=== PATIENT | female | born 1965 | race Caucasian/White ===

== ENCOUNTER 2018-10-26 20:40 | Emergency (ER) | payer MEDICAID ==
--- NOTE | 2018-10-26 20:50 | ED Physician Documentation ---
History of Present Illness - Stated complaint Stated Complaint: FEVER EARLIER/PRODUCTIVE COUGH/NICHOLS - History obtained from History obtained from: Patient - History of Present Illness Timing: How many days ago (2) Improved by: nothing Worsened by: bending forward, coughing - Additonal information Additional information: c/o 2 days of sinus congestion, cough. These symptoms actually started approximately 10 days ago, but had nearly resolved until 2 days ago when they became significantly worse and became associated with fevers, Tmax 101 today. Cough had been dry but now occasionally associated with thick, discolored (green) sputum. Also has generalized headache. Review of Systems Constitutional: reports: Fever, Myalgias Ears: denies: Ear pain Nose: reports: Congestion, Sinus pressure / pain Throat: denies: Sore throat Cardiac: reports: Reviewed and negative Respiratory: reports: Cough. denies: Dyspnea, Wheezing GI: reports: Reviewed and negative Neurologic: reports: Headache PD PAST MEDICAL HISTORY - Past Medical History Past Medical History: Yes Cardiovascular: Hypertension, Pulmonary embolism Respiratory: Asthma - Present Medications Home Medications: Ambulatory Orders Medication Instructions Recorded Confirmed Apixaban [Eliquis] 5 mg PO BID 10/26/18 10/26/18 Atenolol [Tenormin] 50 mg PO BID 10/26/18 10/26/18 Azithromycin [Zithromax] 250 mg PO DAILY #4 tablet 10/26/18 Diltiazem HCl [Diltiazem ER] 180 mg PO DAILY 10/26/18 10/26/18 Hydrocodone/Acetaminophen 1 - 2 each PO Q6HR PRN #14 tablet 10/26/18 [Hydrocodone-Acetamin 5-325 mg] Lisinopril [Prinivil] 20 mg PO DAILY 10/26/18 10/26/18 - Allergies Allergies/Adverse Reactions: Allergies Allergy/AdvReac Type Severity Reaction Status Date / Time Penicillins Allergy Rash Verified 10/26/18 20:52 - Living Situation Living Arrangement: reports: At home PD ED PE NORMAL - Vitals Vital signs reviewed: Yes - General General: Alert and oriented X 3, No acute distress, Well developed/nourished - HEENT HEENT: Moist mucous membranes - Neck Neck: Supple, no meningeal sign - Cardiac Cardiac: RRR, No murmur, No gallop, No rub - Respiratory Respiratory: No respiratory distress, Clear bilaterally Results - Vitals Vitals: Vital Signs - 24 hr 10/26/18 10/26/18 20:50 21:38 Temperature 35.8 C L 36.7 C Heart Rate 105 H 99 Respiratory 20 18 Rate Blood Pressure 145/101 H 145/83 H O2 Saturation 97 96 Oxygen O2 Source Room air - Labs Labs: Laboratory Tests 10/26/18 21:10 Influenza A (Rapid) Negative Influenza B (Rapid) Negative PD MEDICAL DECISION MAKING - ED course Complexity details: reviewed results, re-evaluated patient, considered differential, d/w patient Departure - Departure Disposition: 01 Home, Self Care Clinical Impression: Sinusitis Condition: Good Instructions: ED Headache Sinus, ED Sinusitis Abx Tx Follow-Up: [facility] [Provider Group] [facility] [place] [Provider Group] Prescriptions: Hydrocodone/Acetaminophen [Hydrocodone-Acetamin 5-325 mg] 1 - 2 each PO Q6HR PRN #14 tablet PRN Reason: Pain Azithromycin [Zithromax] 250 mg PO DAILY #4 tablet Forms: Activity restrictions Discharge Date/Time: 10/26/18 21:48
[2018-10-26] MEDS ORDERED: HYDROcod/ACET 5/325 Prepack 4 PO STA (21:33)
[2018-10-26] MEDS ORDERED: AZITHROMYCIN 250 MG TABLET PO STA (21:33)
[2018-10-26 21:40] VITALS: BP 145/83
== END 2018-10-26 21:48 | disposition home or self-care (01) ==
LOC: ED 20:40
DX: J32.9 Chronic sinusitis, unspecified (principal); I10 Essential (primary) hypertension
CPT/HCPCS: 87275; 87276; 99283; A9270

== ENCOUNTER 2018-11-01 09:42 | Emergency (ER) | payer MEDICAID ==
[2018-11-01] MEDS ORDERED: IPRATROPIUM/ALBUTEROL 3 ML NEB INH STA (10:03)
[2018-11-01] MEDS ORDERED: predniSONE 20 MG TABLET PO STA (10:04)
--- NOTE | 2018-11-01 10:12 | ED Physician Documentation ---
History of Present Illness - Stated complaint Stated Complaint: DIFFICULTY BREATHING/COUGH - Chief complaint Chief Complaint: Resp - History obtained from History obtained from: Patient - History of Present Illness Timing: How many weeks ago (1) Pain level max: 2 Pain level now: 2 - Additonal information Additional information: 53 year old female with Cough, nasal congestion for the past week. Was seen here and started on azithromycin. She states that she is having more difficulty breathing. Does have a history of asthma. Is using her inhaler 3-4 times a day. Is not currently on steroids. Nothing makes it better or worse. No fevers Review of Systems Constitutional: denies: Fever Respiratory: reports: Cough, Wheezing GI: denies: Abdominal Pain, Vomiting, Diarrhea : reports: Dysuria, Frequency Skin: denies: Rash Musculoskeletal: denies: Neck pain, Back pain Neurologic: denies: Headache PD PAST MEDICAL HISTORY - Past Medical History Past Medical History: Yes Cardiovascular: Hypertension, Pulmonary embolism Respiratory: Asthma - Present Medications Home Medications: Ambulatory Orders Medication Instructions Recorded Confirmed Apixaban [Eliquis] 5 mg PO BID 10/26/18 11/01/18 Atenolol [Tenormin] 50 mg PO BID 10/26/18 11/01/18 Lisinopril [Prinivil] 20 mg PO DAILY 10/26/18 11/01/18 dilTIAZem HCl [Diltiazem ER] 180 mg PO DAILY 10/26/18 11/01/18 Albuterol Sulf [Ventolin Hfa 1 - 2 puffs INH Q4HR PRN #1 inhaler 11/01/18 Inhaler] Albuterol Sulfate [Proair Hfa 1 - 2 puffs INH Q4H PRN 11/01/18 11/01/18 Inhaler] Nitrofurantoin Monohyd/M-Cryst 100 mg PO BID #10 capsule 11/01/18 [Macrobid 100 mg Capsule] predniSONE [Deltasone] 10 mg PO [id number] #42 tab 11/01/18 - Allergies Allergies/Adverse Reactions: Allergies Allergy/AdvReac Type Severity Reaction Status Date / Time Penicillins Allergy Rash Verified 11/01/18 09:46 - Social History Does the pt smoke?: No Smoking Status: Never smoker Does the pt drink ETOH?: Yes Does the pt have substance abuse?: No - Immunizations Immunizations are current?: Yes PD ED PE NORMAL - Vitals Vital signs reviewed: Yes - General General: Alert and oriented X 3, No acute distress - HEENT HEENT: Ears normal, Moist mucous membranes, Pharynx benign - Neck Neck: Supple, no meningeal sign - Cardiac Cardiac: RRR - Respiratory Respiratory: No respiratory distress, Other (wheezing B) - Abdomen Abdomen: Soft, Non tender, Non distended - Derm Derm: Warm and dry - Extremities Extremities: No edema - Neuro Neuro: Alert and oriented X 3 - Psych Psych: Normal mood, Normal affect Results - Vitals Vitals: Vital Signs - 24 hr 11/01/18 11/01/18 11/01/18 09:43 10:19 12:17 Temperature 36.2 C L Heart Rate 81 80 71 Respiratory 20 16 18 Rate Blood Pressure 148/83 H 159/93 H O2 Saturation 95 97 Oxygen O2 Source Room air - Labs Labs: Laboratory Tests 11/01/18 11:25 Urine Color YELLOW Urine Clarity CLEAR Urine pH 6.0 Ur Specific [place] >=1.030 H Urine Protein 30 H Urine Glucose (UA) NEGATIVE Urine Ketones NEGATIVE Urine Occult Blood NEGATIVE Urine Nitrite POSITIVE H Urine Bilirubin SMALL H Urine Urobilinogen 1 (NORMAL) Ur Leukocyte Esterase NEGATIVE Urine RBC 0-5 Urine WBC 0-3 Ur Squamous Epith Cells MOD Squamous H Urine Bacteria Rare Urine Mucus Few Strands Ur Microscopic Review INDICATED Urine Culture Comments NOT INDICATED PD MEDICAL DECISION MAKING - ED course Complexity details: reviewed old records, reviewed results, re-evaluated patient, considered differential, d/w patient ED course: Patient feels much better after albuterol treatment. Will place on steroids for home. We will also treat for UTI. She is well-appearing, nontoxic. No hypoxia or respiratory distress. Patient counseled regarding signs and symptoms for which I believe and urgent re-evaluation would be necessary. Patient with good understanding of and agreement to plan and is comfortable going home at this time This document was made in part using voice recognition software. While efforts are made to proofread this document, sound alike and grammatical errors may occur. Departure - Departure Disposition: 01 Home, Self Care Clinical Impression: Upper respiratory tract infection Qualifiers: URI type: unspecified URI Qualified Code(s): J06.9 - Acute upper respiratory infection, unspecified UTI (urinary tract infection) Qualifiers: Urinary tract infection type: acute cystitis Hematuria presence: without hematuria Qualified Code(s): N30.00 - Acute cystitis without hematuria Condition: Good Instructions: ED URI Viral W Wheezing, ED UTI Cystitis Female Follow-Up: your,doctor in 1 week [Other] Prescriptions: Albuterol Sulf [Ventolin Hfa Inhaler] 1 - 2 puffs INH Q4HR PRN #1 inhaler PRN Reason: Shortness Of Air/Wheezing Nitrofurantoin Monohyd/M-Cryst [Macrobid 100 mg Capsule] 100 mg PO BID #10 capsule predniSONE [Deltasone] 10 mg PO [id number] #42 tab Comments: Return if you worsen. Take all antibiotics until gone. Follow-up with your doctor for further care. Forms: Activity restrictions Discharge Date/Time: 11/01/18 12:21
[2018-11-01 11:43] LABS: GLUCOSE, URINE (UA) NEGATIVE (NEGATIVE); KETONES,URINE (UA) NEGATIVE (NEGATIVE); LEUKOCYTE ESTERASE, URINE NEGATIVE (NEGATIVE); NITRITE,URINE POSITIVE (NEGATIVE); OCCULT BLOOD,URINE NEGATIVE (NEGATIVE); PROTEIN,URINE 30 mg/dL (NEGATIVE); UROBILINOGEN,URINE 1 (NORMAL) E.U./dL (NORMAL)
[2018-11-01 11:46] LABS: CLARITY,URINE CLEAR (CLEAR)
[2018-11-01 11:47] LABS: BILIRUBIN,URINE SMALL (NEGATIVE); ICTOTEST,URINE POSITIVE
[2018-11-01 12:01] LABS: BACTERIA,URINE Rare /HPF (None Seen); MUCUS,URINE Few Strands; RBC,URINE 0-5 /HPF (0-5); SQUAMOUS EPITHELIAL CELL,UR MOD Squamous (<= Few)
[2018-11-01 12:18] VITALS: BP 159/93
== END 2018-11-01 12:21 | disposition home or self-care (01) ==
LOC: ED 09:42
DX: J06.9 Acute upper respiratory infection, unspecified (principal); N30.00 Acute cystitis without hematuria; J45.909 Unspecified asthma, uncomplicated; I10 Essential (primary) hypertension
CPT/HCPCS: 81001; 94640; 99283; J7512; 81003; 87086

== ENCOUNTER 2019-06-25 12:48 | Emergency (ER) | payer MEDICAID ==
--- NOTE | 2019-06-25 12:59 | ED Physician Documentation ---
PD HPI DYSPNEA - Stated complaint Stated Complaint: DIFFICUTLY BREATHING - Chief complaint Chief Complaint: Resp - History obtained from History obtained from: Patient - History of Present Illness Timing - onset: How many days ago (10) Timing - duration: Days (10) Timing - details: Gradual onset Inciting event(s): URI Associated symptoms: Cough, Wheezing. No: Fever, Chest pain / discomfort, Palpitations Similar symptoms before: Treatment Recently seen: Not recently seen - Additional information Additional information: There is a 54-year-old woman with a history of asthma presents with complaints that she is had a cold for the past 10 days and her asthma is just flared up with increasing wheezing she is coughing to the point she cannot sleep. She brings up a little bit of yellowish phlegm. She is been using her Ventolin about 4 times a day but is just not holding her symptoms and last time she was on prednisone was August of this year. She feels like she probably needs to be back on it. She also has access to a nebulizer machine right now although she does not have her own at home. She denies feeling dizzy or having a fever. Her left ear is aching and she has some nasal drainage that she just clear. Her ribs are sore from coughing and she has a little sore the medial canthus of the left eye from the cold as well. She is been using Robitussin for the coughing. No history of diabetes. Review of Systems Constitutional: denies: Fever Eyes: reports: Irritation (Left eye medial canthus). denies: Decreased vision Ears: reports: Ear pain (Left ear and she can feel fluid behind it) Nose: reports: Rhinorrhea / runny nose, Congestion Throat: reports: Sore throat (From postnasal drainage) Cardiac: denies: Chest pain / pressure Respiratory: reports: Dyspnea, Cough, Wheezing GI: denies: Nausea, Vomiting Endocrine: reports: Other (She is not diabetic) PD PAST MEDICAL HISTORY - Past Medical History Cardiovascular: Hypertension, Pulmonary embolism Respiratory: Asthma - Present Medications Home Medications: Ambulatory Orders Medication Instructions Recorded Confirmed Apixaban [Eliquis] 5 mg PO BID 10/26/18 11/01/18 Atenolol [Tenormin] 50 mg PO BID 10/26/18 11/01/18 Lisinopril [Prinivil] 20 mg PO DAILY 10/26/18 11/01/18 dilTIAZem HCl [Diltiazem ER] 180 mg PO DAILY 10/26/18 11/01/18 Albuterol Sulfate [Proair Hfa 1 - 2 puffs INH Q4H PRN 11/01/18 11/01/18 Inhaler] Albuterol Sulf 5 mg IH Q4H PRN #30 ml 06/25/19 Azithromycin [Zithromax] 250 mg PO DAILY #6 tablet 06/25/19 Budesonide/Formoterol Fumarate 10.2 gm IH BID 06/25/19 06/25/19 [Symbicort 80-4.5 Mcg Inhaler] predniSONE [Prednisone] 60 mg PO DAILY #15 tablet 06/25/19 - Allergies Allergies/Adverse Reactions: Allergies Allergy/AdvReac Type Severity Reaction Status Date / Time Penicillins Allergy Rash Verified 06/25/19 13:12 - Social History Does the pt smoke?: No Smoking Status: Never smoker Does the pt drink ETOH?: Yes Does the pt have substance abuse?: No - Immunizations Immunizations are current?: Yes PD ED PE NORMAL - Vitals Vital signs reviewed: Yes - General General: Alert and oriented X 3, No acute distress, Well developed/nourished - HEENT HEENT: Atraumatic, PERRL, EOMI, Moist mucous membranes, Pharynx benign. No: Ears normal (The right tympanic membrane is clear with evidently hernandez the left is clear with evidently enlarged but there is some serous fluid and air bubbles noted behind the left TM.) - Neck Neck: Supple, no meningeal sign, No adenopathy, Thyroid normal - Cardiac Cardiac: RRR, No murmur, Strong equal pulses - Respiratory Respiratory: No respiratory distress. No: Clear bilaterally (There are wheezes heard throughout the lung graves inspiratory and expiratory) - Abdomen Abdomen: Normal bowel sounds, Soft, No organomegaly - Derm Derm: Normal color, Warm and dry, No rash - Neuro Neuro: Alert and oriented X 3, wallpaper inspector 2-12 intact, No motor deficit, No sensory deficit, Normal speech - Psych Psych: Normal mood, Normal affect Results - Vitals Vitals: Vital Signs - 24 hr 06/25/19 06/25/19 06/25/19 12:51 13:30 13:54 Temperature 36.5 C Heart Rate 64 72 65 Respiratory 18 14 20 Rate Blood Pressure 143/93 H 133/67 H O2 Saturation 96 96 Oxygen O2 Source Room air PD MEDICAL DECISION MAKING - ED course Complexity details: re-evaluated patient, d/w patient ED course: Patient was given an albuterol nebulizer and on reevaluation her lung sounds were much improved with just some faint wheezing at the bases. She felt much improved and felt ready for discharge. We discussed prednisone prescription and she is given some albuterol nebulizer solution for the nebulizer that she has access to. She also has her inhaler. We did give a back-up prescription for Zithromax Z-Juan to start if she is not improving. Departure - Departure Disposition: Home, Self Care Clinical Impression: Bronchitis Asthma Qualifiers: Asthma severity: moderate Asthma persistence: unspecified Asthma complication type: with acute exacerbation Qualified Code(s): J45.901 - Unspecified asthma with (acute) exacerbation Condition: Good Instructions: ED Bronchitis Asthmatic Follow-Up: Colin Olivia MD [Primary Care Provider] - Prescriptions: Albuterol Sulf 5 mg IH Q4H PRN #30 ml PRN Reason: Dyspnea Azithromycin [Zithromax] 250 mg PO DAILY #6 tablet predniSONE [Prednisone] 60 mg PO DAILY #15 tablet Comments: Use the albuterol nebulizer solution up to every 4 hours as needed for wheezing or shortness of breath. Start the prednisone 60 mg daily for the next 5 days. You have a back-up prescription if needed for Zithromax Z-JUAN if your symptoms are not improving. Follow-up with your primary care provider for further evaluation and management as needed.
[2019-06-25] MEDS ORDERED: ALBUTEROL NEB 2.5 MG/3 ML INH STA (13:11)
[2019-06-25 13:55] VITALS: BP 133/67
== END 2019-06-25 14:07 | disposition home or self-care (01) ==
LOC: ED 12:48
DX: J45.901 Unspecified asthma with (acute) exacerbation (principal); I10 Essential (primary) hypertension; Z86.711 Personal history of pulmonary embolism; Z79.01 Long term (current) use of anticoagulants
CPT/HCPCS: 94640; 99283; 99284

== ENCOUNTER 2023-10-30 00:18 | Emergency (ER) | payer MEDICAID ==
[2023-10-30 00:56] LABS: BILIRUBIN,URINE NEGATIVE (NEGATIVE); GLUCOSE, URINE (UA) 100 mg/dL (NEGATIVE); KETONES,URINE (UA) TRACE mg/dL (NEGATIVE); LEUKOCYTE ESTERASE, URINE TRACE (NEGATIVE); NITRITE,URINE POSITIVE (NEGATIVE); OCCULT BLOOD,URINE LARGE (NEGATIVE); PROTEIN,URINE 100 mg/dL (NEGATIVE); UROBILINOGEN,URINE 4 E.U./dL (NORMAL)
[2023-10-30 00:59] LABS: CLARITY,URINE CLEAR (CLEAR)
[2023-10-30 01:09] LABS: BACTERIA,URINE Rare /HPF (None Seen); SQUAMOUS EPITHELIAL CELL,UR RARE Squamous (<= Few)
--- NOTE | 2023-10-30 02:28 | ED Physician Documentation ---
PD HPI FEMALE - Stated complaint Stated Complaint: - Chief complaint Chief Complaint: UTI - History obtained from History obtained from: Patient - Additional information Additional information: HPI from patient. Patient c/o urinary frequency, burning dysuria, sensation of incomplete voiding since yesterday morning. Symptoms have steadily worsened and she noted hematuria tonight. She says she has had similar symptoms in the past associated with UTI. Denies fever PD PAST MEDICAL HISTORY - Past Medical History Past Medical History: Yes Cardiovascular: Hypertension, Pulmonary embolism, Atrial fibrillation Respiratory: Asthma : Other Psych: Anxiety, Panic attacks Musculoskeletal: Osteoarthritis Other Past Medical History: UTI - Past Surgical History Past Surgical History: No - Present Medications Home Medications: Ambulatory Orders Medication Instructions Recorded Confirmed Atenolol [Tenormin] 50 mg PO BID 10/26/18 10/30/23 lisinopriL [Prinivil] 20 mg PO DAILY 10/26/18 10/30/23 Albuterol Sulfate [Proair Hfa 1 - 2 puffs INH Q4H PRN 11/01/18 10/30/23 Inhaler] Albuterol 3 ml IH Q6HR PRN 10/30/23 10/30/23 Diclofenac Sodium 50 mg PO TID PRN 10/30/23 10/30/23 Fluticasone/Salmeterol [Advair 1 puffs IH BID 10/30/23 10/30/23 250-50 Diskus] Gabapentin [Neurontin] 300 mg PO TID 10/30/23 10/30/23 LORazepam [Ativan] 0.5 mg PO DAILY PRN 10/30/23 10/30/23 Nitrofurantoin [Macrobid] 100 mg PO BID #9 cap 10/30/23 Sertraline HCl 100 mg PO DAILY 10/30/23 10/30/23 methocarbamoL [Methocarbamol] 750 mg PO DAILY 10/30/23 10/30/23 - Allergies Allergies/Adverse Reactions: Allergies Allergy/AdvReac Type Severity Reaction Status Date / Time Penicillins Allergy Rash Verified 10/30/23 00:38 - Social History Does the pt smoke?: No Smoking Status: Never smoker Does the pt drink ETOH?: Yes ETOH Use: Wine Does the pt have substance abuse?: No - Immunizations Immunizations are current?: Yes - POLST Patient has POLST: No PD ED PE NORMAL - Vitals Vital signs reviewed: Yes - General General: Alert and oriented X 3, No acute distress, Well developed/nourished - Abdomen Abdomen: Soft, Non tender - Back Back: No CVA TTP Results - Vitals Vitals: Vital Signs - 24 hr 10/30/23 10/30/23 00:31 03:00 Temperature 36.2 C L 36.5 C Heart Rate 94 75 Respiratory 16 16 Rate Blood Pressure 146/94 H 141/95 H O2 Saturation 97 94 Oxygen O2 Source Room air - Labs Labs: Laboratory Tests 10/30/23 00:50 Urine Color ORANGE Urine Clarity CLEAR Urine pH 6.0 Ur Specific [place] >=1.030 H Urine Protein 100 H Urine Glucose (UA) 100 H Urine Ketones TRACE Urine Occult Blood LARGE H Urine Nitrite POSITIVE H Urine Bilirubin NEGATIVE Urine Urobilinogen 4 H Ur Leukocyte Esterase TRACE H Urine RBC 6-10 H Urine WBC 11-25 H Ur Squamous Epith Cells RARE Squamous Urine Bacteria Rare Ur Microscopic Review INDICATED Urine Culture Comments INDICATED PD Medical Decision Making - ED course Complexity details: considered differential, d/w patient ED course: Symptoms and UA results are c/w UTI. She is given 100mg PO macrobid in ED and rx for 5-day course is electronically submitted to patient's pharmacy of choice. Return precautions reviewed. Departure - Departure Disposition: 01 Home, Self Care Clinical Impression: UTI (urinary tract infection) Condition: Good Instructions: ED UTI Cystitis Female Prescriptions: Nitrofurantoin [Macrobid] 100 mg PO BID #9 cap Comments: Your urinalysis is consistent with urinary tract infection. You were given the first dose of an antibiotic (Macrobid) in the emergency department, and I have electronically submitted a prescription for a 5-day course of this antibiotic to the [facility] pharmacy in [place]. Forms: PCP List Discharge Date/Time: 10/30/23 03:00
[2023-10-30] MEDS: NITROFURANTOIN MACRO 100 MG CAPSULE PO STA (02:59)
[2023-10-30 03:12] VITALS: BP 141/95; O2SAT 94
== END 2023-10-30 03:00 | disposition home or self-care (01) ==
LOC: ED 00:18
DX: N39.0 Urinary tract infection, site not specified (principal); I48.91 Unspecified atrial fibrillation; I10 Essential (primary) hypertension
CPT/HCPCS: 81001; 87086; 99283; A9270; 81003

== ENCOUNTER 2024-03-26 21:10 | Emergency (ER) | payer MEDICARE, MEDICAID ==
[2024-03-26 21:23] VITALS: O2SAT 100
--- NOTE | 2024-03-26 21:33 | ED Physician Documentation ---
History of Present Illness - Stated complaint Stated Complaint: FALL/HEAD INJ - Chief complaint Chief Complaint: Trauma Hd/Nk - History obtained from History obtained from: Patient, Family - History of Present Illness Timing: Prior to arrival (Mother) - Additonal information Additional information: Patient is a 59-year-old female with past medical history of hypertension presents to the emergency department with fall. Patient was in her wheelchair when she was pushing back from the counter to go get something and she herself and fell against the door frame. She hit the back of her head and sustained a large bump to her back of her head. She denies any nausea vomiting. She denies any loss of consciousness. She is on aspirin but no other blood thinners. She denies any confusion or changes in mental status. She has a GCS of 15 on arrival. PD PAST MEDICAL HISTORY - Past Medical History Past Medical History: Yes Cardiovascular: Hypertension, Pulmonary embolism, Atrial fibrillation Respiratory: Asthma : Other Psych: Anxiety, Panic attacks Musculoskeletal: Osteoarthritis - Past Surgical History Past Surgical History: No - Present Medications Home Medications: Ambulatory Orders Medication Instructions Recorded Confirmed atenoloL [Tenormin] 50 mg PO BID 10/26/18 10/30/23 lisinopriL [Prinivil] 20 mg PO DAILY 10/26/18 10/30/23 Albuterol Sulfate [Proair Hfa 1 - 2 puffs INH Q4H PRN 11/01/18 10/30/23 Inhaler] Albuterol 3 ml IH Q6HR PRN 10/30/23 10/30/23 Diclofenac Sodium 50 mg PO TID PRN 10/30/23 10/30/23 Fluticasone Propion/Salmeterol 1 puffs IH BID 10/30/23 10/30/23 [Advair 250-50 Diskus] Gabapentin [Neurontin] 300 mg PO TID 10/30/23 10/30/23 LORazepam [Ativan] 0.5 mg PO DAILY PRN 10/30/23 10/30/23 Nitrofurantoin [Macrobid] 100 mg PO BID #9 cap 10/30/23 Sertraline HCl 100 mg PO DAILY 10/30/23 10/30/23 methocarbamoL [Methocarbamol] 750 mg PO DAILY 10/30/23 10/30/23 - Allergies Allergies/Adverse Reactions: Allergies Allergy/AdvReac Type Severity Reaction Status Date / Time Penicillins Allergy Rash Verified 03/26/24 21:18 - Social History Does the pt smoke?: No Smoking Status: Never smoker Does the pt drink ETOH?: Yes Does the pt have substance abuse?: No - Immunizations Immunizations are current?: Yes - POLST Patient has POLST: No PD ED PE NORMAL - Vitals Vital signs reviewed: Yes - General General: Alert and oriented X 3 - HEENT HEENT: Atraumatic, PERRL, EOMI, Ears normal (No hemotympanum.), Other (Large hematoma noted to left posterior head. Abrasion noted over hematoma but no active bleeding no signs of laceration.) - Neck Neck: Supple, no meningeal sign, C-Spine cleared by NEXUS criteria (No C-spine midline tenderness. Full range of motion on active and passive range of motion intact.) - Cardiac Cardiac: RRR, No murmur, No gallop, No rub - Respiratory Respiratory: No respiratory distress, Clear bilaterally - Neuro Neuro: Alert and oriented X 3, disaster response director 2-12 intact, No motor deficit, No sensory deficit Eye Opening: Spontaneous Motor: Obeys Commands Verbal: Oriented GCS Score: 15 - Psych Psych: Normal mood, Normal affect Results - Vitals Vitals: Oxygen O2 Source Room air PD Medical Decision Making - ED course Complexity details: reviewed old records, reviewed results ED course: Patient is a 59-year-old female presenting to the emergency department after a fall from wheelchair at home. She notes she was pushing it back in the kitchen when she tipped it over fell backwards and hit the back of her head. She is on aspirin but no other blood thinners. She did not lose consciousness. Patient notes severe pain to posterior head and left upper shoulder. Patient notes no loss of consciousness was able to get up on her own. Vital stable on arrival. Posterior large hematoma noted with small abrasion without active bleeding no signs of lash serration appreciated. Normal cardiac lung sounds appreciated. No C-spine tenderness and full range of motion of neck intact. Reproducible suprascapular tenderness on examination no significant swelling or bruising appreciated with full range of motion on passive and active range of motion of left upper arm with sensation intact. Patient given Tylenol and lidocaine patch here in emergency department will obtain CT scan head given large hematoma patient is greater than 58 years old and significant pain on exam Departure - Departure Disposition: 01 Home, Self Care Clinical Impression: Mild concussion, Hematoma, Contusion Condition: Good Instructions: ED Hematoma Comments: You were seen here in the emergency department after a fall at home your workup here showed no acute bleeding. Your injury most likely caused a hematoma and mild concussion. Take Tylenol and ibuprofen at home for pain control rest and avoid your phone or computer assist worsening symptoms. Return with any persistent nausea vomiting difficulty walking or behavioral changes. Follow-up with your PCP in 1 week to ensure improvement in symptoms. Forms: PCP List Discharge Date/Time: 03/26/24 22:25
[2024-03-26] MEDS: ACETAMINOPHEN 500 MG TABLET PO STA (21:51)
[2024-03-26] MEDS: LIDOCAINE PATCH 4% TOP STA (21:51)
--- NOTE | 2024-03-26 22:02 | CT Report ---
PROCEDURE: Head WO INDICATIONS: fall head injury >50 yo, large hematoma TECHNIQUE: Noncontrast 4.5 mm thick angled axial sections acquired from the foramen magnum to the vertex. For r adiation dose reduction, the following was used: automated exposure control, adjustment of mA and/or kV according to patient size. COMPARISON: None. FINDINGS: Image quality: Excellent. CSF spaces: Basal cisterns are patent. No extra-axial fluid collections. Ventricles are normal in size and shape. Brain: No midline shift. No intracranial masses or hemorrhage. Decker-white matter interface is norm al. Skull and face: Moderate-sized left posterior parietal subcutaneous hematoma with decreased soft tiss ue gas suggesting accompanying laceration. No underlying fracture. No radiodense debris.. Sinuses: Visualized sinuses and mastoids are clear. IMPRESSION: No CT evidence of acute intracranial trauma. Left parietal subcutaneous hematoma without underlying fracture. Reviewed by: Jennifer Stahl MD on 03/26/2024 10:01 PM PDT Approved by: Jennifer Stahl MD on 03/26/2024 10:01 PM PDT Station ID: [id number]
[2024-03-26 22:30] VITALS: BP 154/86
== END 2024-03-26 22:25 | disposition home or self-care (01) ==
LOC: ED 21:10
DX: S00.01XA Abrasion of scalp, initial encounter (principal); S00.03XA Contusion of scalp, initial encounter; M25.512 Pain in left shoulder; S06.0X0A Concussion without loss of consciousness, initial encounter; V00.811A Fall from moving wheelchair (powered), initial encounter; Y93.89 Activity, other specified
CPT/HCPCS: 70450; 99283; 99284; A9270